=== PATIENT | male | born 1950 | race Caucasian/White ===

== ENCOUNTER 2019-09-08 11:35 | Observation (INO) | payer OTHER ==
[2019-09-08] MEDS ORDERED: NS 0.9% 1000 ML** 1,000 ML IV ONE (11:44)
--- NOTE | 2019-09-08 11:44 | ED ---
Neurological HPI - HPI Summary HPI Summary: This pt is a 69 y/o male, accompanied by , presenting to [facility] for confusion. reports the last time she saw the patient completely normal was last night. 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 Per , pt took a shower at around 1000, got dressed and came out to the living room asking repetitive questions. states pt was asking what day of the week it was and if he had to teach today. Pt denies any physical pain. Pt is unable to state his location, age, or current month. PMHx: DVT. Pt is anticoagulated on Xarelto. Pt follows up with Dr. Gaytan for blood clot. FHx: mother with stroke 3 years ago. - History of Current Complaint Stated Complaint: CONFUSION PER Hx Obtained From: Patient, Family/Comprehensive Ophthalmologist - Onset/Duration: Sudden Onset Timing: Sudden Onset Current Severity: Moderate Pain Intensity: 0 Pain Scale Used: 0-10 Numeric Character: Confusion Aggravating: Nothing Alleviating: Nothing Associated Signs and Symptoms: Positive: Confusion Related Hx: Anticoagulants - Allergy/Home Medications Allergies/Adverse Reactions: Allergies Allergy/AdvReac Type Severity Reaction Status Date / Time No Known Allergies Allergy Verified 09/08/19 12:19 Home Medications: Home Medications Cetirizine* [ZyrTEC 10 MG TAB*] 10 mg PO DAILY 09/08/19 [History Confirmed 09/08] Omeprazole CAP (NF) [Prilosec CAP* 20 MG] 20 mg PO QAM 09/08/19 [History Confirmed 09/08/19] Rivaroxaban TAB(*) [Xarelto 10 mg (*)] 10 mg PO DAILY 09/08/19 [History Confirmed 09/08/19] PMH/Surg Hx/FS Hx/Imm Hx Endocrine/Hematology History: Denies: Hx Diabetes Cardiovascular History: Reports: Hx Deep Vein Thrombosis Denies: Hx Coronary Artery Disease, Hx Hypercholesterolemia, Hx Hypertension - Surgical History Surgical History: Yes Surgery Procedure, Year, and Place: radical prostatectomy. hernia surgeries - Family History Family History: Mother with stroke 3 years ago - Social History Alcohol Use: Occasionally Substance Use Type: Reports: None Smoking Status (MU): Never Smoked Tobacco Review of Systems - ROS Summary Review of Systems Summary: ROS IS LIMITED DUE TO LEVEL 5 CAVEAT - pt with confusion Negative: Fever Neurological: Other - POSITIVE: confusion All Other Systems Reviewed And Are Negative: No Physical Exam - Summary Physical Exam Summary: VITAL SIGNS: Reviewed. GENERAL: Patient is a well-developed and nourished male who is lying comfortable in the stretcher. Patient is not in any acute respiratory distress. HEAD AND FACE: No signs of trauma. No ecchymosis, hematomas or skull depressions. No sinus tenderness. EYES: PERRLA, EOMI x 2, No injected conjunctiva, no nystagmus. No photophobia. EARS: Hearing grossly intact. Ear canals and tympanic membranes are within normal limits. MOUTH: Oropharynx within normal limits. NECK: Supple, trachea is midline, no adenopathy, no JVD, no carotid bruit, no c- spine tenderness, neck with full ROM. No meningeal signs, no Kernig's or brudzinskis signs. CHEST: Symmetric, no tenderness at palpation. LUNGS: Clear to auscultation bilaterally. No wheezing or crackles. CVS: Regular rate and rhythm, S1 and S2 present, no murmurs or gallops appreciated. ABDOMEN: Soft, non-tender. No signs of distention. No rebound, no guarding, and no masses palpated. Bowel sounds are normal. EXTREMITIES: FROM in all major joints, no edema, no cyanosis or clubbing. NEURO: Alert and oriented x1, patient does not know the month or his age. Patient is repeating the same questions. Speech is normal and follows commands. SKIN: Dry and warm. GCS: 15 Triage Information Reviewed: Yes Vital Signs Reviewed: Yes Procedures - Sedation Patient Received Moderate/Deep Sedation with Procedure: No Diagnostics - Laboratory Result Diagrams: 09/09/19 09:16 09/09/19 09:16 Lab Statement: Any lab studies that have been ordered have been reviewed, and results considered in the medical decision making process. - Radiology Chest XR Radiology Interpretation Completed By: Radiologist Summary of Radiographic Findings: IMPRESSION: 1. No evidence for acute finding. 2. Mass at the thoracic inlet causing tracheal deviation and narrowing. Recommend a follow-up thyroid ultrasound for further evaluation. Dr. Rhodes has reviewed this report. - CT Brain CT CT Interpretation Completed By: Radiologist Summary of CT Findings: IMPRESSION: Hypoattenuation in the left hemipons does not cross midline. Although this could be artifact, this could BE further evaluated by brain MRI. These findings were discussed with Dr. Alexis Rhodes at 11:57 on September 08, 2019. - EKG 11:53 Cardiac Rate: NL - at 77 bpm EKG Rhythm: Sinus Rhythm Summary of EKG Findings: EKG at 1153 shows normal sinus rhythm at [address] elevations. NIH Scale - NIH Scale Level of Consciousness: Alert/Keenly Responsive Ask Patient the Month and His/Her Age: Neither Correct/Aphasic Ask Pt to Open/Close Eyes and It Integration Architect/Release Non-Paretic Hand: Both Correctly Best Gaze (Only Horizontal Eye Movement): Normal Visual Field Testing: No Visual Loss Facial Paresis-Pt to Smile & Close Eyes or Grimace Symmetry: Normal/Symmetrical Motor Function - Right Arm: No Drift-Holds 10 Seconds Motor Function - Left Arm: No Drift-Holds 10 Seconds Motor Function - Right Leg: No Drift-Holds 10 Seconds Motor Function - Left Leg: No Drift-Holds 10 Seconds Limb Ataxia-Must be out of Proportion to Weakness Present: Absent Sensory (Use Pinprick to Test Arms/Legs/Trunk/Face): Normal Best Language (Describe Picture, Name Items): No Aphasia Dysarthria (Read Several Words): Normal Extinction and Inattention: No Abnormality Total Score: 2 Course/Dx - Course Course Of Treatment: Code Mcclelland at 1140. CT ordered at 1144. Pt to CT at 1144. Pt returned from CT at 1150. Dr. Gtz, radiologist, reports CT brain results at 1157. At 1220 Dr. Samuel, neurologist, reports pt is not a candidate for tpa, he believes pt may have transient global amnesia vs CVA. Dr. Samuel will order a full work up on the patient and recommends admission to the hospitalist. Assessment/Plan: This pt is a 69 y/o male, accompanied by , presenting to [facility] for confusion. reports the last time she saw the patient completely normal was last night. 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 Per , pt took a shower at around 1000, got dressed and came out to the living room asking repetitive questions. states pt was asking what day of the week it was and if he had to teach today. Pt denies any physical pain. Pt is unable to state his location, age, or current month. PMHx: DVT. Pt is anticoagulated on Xarelto. Pt follows up with Dr. Gaytan for blood clot. Srinath maria e was called at triage. Head CT IMPRESSION: 1. Hypoattenuation in the left hemipons does not cross the midline. Although this could be an artifact, this should BE further evaluated by brain MRI. CXR impression: NO EVIDENCE FOR ACUTE FINDING. 2. MASS AT THE THORACIC INLET INLET CAUSING TRACHEAL DEVIATION AND NARROWING. RECOMMEND A. FOLLOW-UP THYROID ULTRASOUND FOR FURTHER EVALUATION. CTA head and neck IMPRESSION: 1. THERE IS AN 8.1 CM LEFT THYROID MASS WITH MASS EFFECT UPON THE TRACHEA AND NARROWING OF THE LUMEN OF THE AIRWAY. 2. NO INTERNAL CAROTID ARTERY STENOSIS BY NASCET CRITERIA. 3. NO ANEURYSM, VASCULAR MALFORMATION, OCCLUSION, OR STENOSIS OF THE VISUALIZED INTRACRANIAL CIRCULATION. Dr. Samuel from neurology came and assessed the patient. He recommends no TPA since the patient is taking Xarelto. He recommends admission to the hospitalist for further workup and management. I discussed the case with Dr. Savage from the hospitalist services and he accepted the patient for admission. At this time we are waiting to rule out CVA versus transient global ablation. - Diagnoses Provider Diagnoses: Transient global amnesia During the Visit The Following Alert/Code Occurred: Code Mcclelland - at 11:40 - Physician Notifications Discussed Care Of Patient With: Bob Samuel Time Discussed With Above Provider: 12:20 Instructed by Provider To: Other - Dr. Samuel, neurologist, reports pt is not a candidate for tpa, he believes pt may have transient global amnesia vs CVA. Dr. Samuel will order a full work up on the patient and recommends admission. [12:35] Discussed with Dr. Savage, hospitalist, who accepted the pt for admission. Discharge ED - Sign-Out/Discharge Documenting (check all that apply): Patient Departure - Admit to [facility] [place] [facility] [place] Discharge Plan Condition: Stable Disposition: ADMITTED TO [facility] - Billing Disposition and Condition Condition: STABLE Disposition: Admitted to [facility] - Attestation Statements Document Initiated by Scribe: Yes Documenting Scribe: Sandhya Rand Provider For Whom Scribe is Documenting (Include Credential): Alexis Rhodes MD Scribe Attestation: Sandhya Blake, scribed for Alexis Rhodes MD on 09/09/19 at 1843. Scribe Documentation Reviewed: Yes Provider Attestation: The documentation as recorded by the scribe, Sandhya Rand accurately reflects the service I personally performed and the decisions made by me, Alexis Rhodes MD Status of Scribe Document: Viewed
[2019-09-08 12:07] LABS: ABS Eosinophils 0.1 10^3/ul (0-0.6); ABS Lymphocytes 1.4 10^3/ul (1.0-4.8); ABS Monocytes 0.7 10^3/ul (0-0.8); ABS Neutrophils 2.4 10^3/ul (1.5-7.7); Eosinophil % 3.2 %; Hematocrit 45 % (42-52); Hemoglobin 15.3 g/dL (14.0-18.0); Lymphocyte % 29.3 %; Mean Corpuscular HGB Conc 34 g/dL (31-36); Mean Corpuscular Hemoglobin 30 pg (27-31); Mean Corpuscular Volume 87 fL (80-94); Mean Platelet Volume 8.1 fL (7.4-10.4); Nucleated Red Blood Cells % 0.1; Platelet Count 188 10^3/uL (150-450); Red Blood Count 5.19 10^6 /uL (4.18-5.48); Red Cell Distribution Width 14 % (10-15); White Blood Count 4.7 10^3/uL (3.5-10.8)
[2019-09-08 12:14] LABS: INR 1.12 (0.82-1.09)
[2019-09-08 12:23] LABS: Albumin 4.1 g/dL (3.2-5.2); Albumin/Globulin Ratio 1.2 (1-3); BUN/Creatinine Ratio 22.4 (8-20); Calcium 9.4 mg/dL (8.6-10.3); EGFR Non-African American 76.1 (>60); Globulin 3.3 g/dL (2-4); HDL Cholesterol 36.3 mg/dL; Potassium 3.5 mmol/L (3.5-5.0); Total Bilirubin 0.6 mg/dL (0.2-1.0); Total Protein 7.4 g/dL (6.4-8.9)
[2019-09-08] MEDS ORDERED: Iohexol 350* (CONTRAST) 500 ML MDV IV ONE (12:27)
[2019-09-08] MEDS ORDERED: Thiamine INJ* 100 MG/ML 2 ML VIAL IV ONE (12:57)
[2019-09-08 13:03] LABS: Free T4 1.1 ng/dL (0.61-1.12)
[2019-09-08 13:05] LABS: TSH (Thyroid Stimulating Horm) 0.02 mcIU/mL (0.34-5.60)
[2019-09-08 13:12] LABS: Folate 15.51 ng/mL (>3.99)
[2019-09-08] MEDS ORDERED: Thiamine IV 100 MG in NS 0.9% 50 ML Q24H IV ONE (13:30)
[2019-09-08 13:43] LABS: Urine Appearance Clear; Urine Bilirubin Negative (Negative); Urine Blood Negative (Negative); Urine Color Yellow; Urine Glucose Negative (Negative); Urine Ketones Negative (Negative); Urine Nitrite Negative (Negative); Urine Protein Negative (Negative); Urine Urobilinogen Negative (Negative)
--- NOTE | 2019-09-08 14:19 | CONS ---
CC: Usha Saavge MD; Malik Gaytan MD * CONSULTATION REPORT: DATE OF CONSULT: 09/08/19 LOCATION: He is currently in the ER room 17. PRIMARY CARE PROVIDER: Usha Savage MD. REASON FOR CONSULTATION: Acute confusion. HISTORY OF PRESENT ILLNESS: Mr. Moon is a 69-year-old gentleman who has a known history of a DVT in the lower extremity several years ago, has been on half dose of Xarelto for that. I did speak with Dr. Malik Gaytan, who takes care of him, who notes a history of idiopathic DVT for which the treatment is generally anticoagulant; in this case, a half dose of Xarelto. He notes the 1- year risk of recurrent DVT in these patients off anticoagulation is about 8% and the 4-year risk is about 25%, which is why he remains on the Xarelto. He has had no problems from his DVT in the recent past. 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 He has been in his usual state of health and was last seen normal at midnight last night when his talked to him. This morning at around 9:30 or 10, she noticed that he kept repeating himself. She noted no focal weakness. He notes no numbness or tingling. He has not had any falls or head trauma. There have been no headaches reported, no vision loss, no hearing loss, no facial droop, no problems swallowing. She notes that he continues to ask the same question over and over. He continued to ask what date it was, what year it was, and where he was. In the ER, he was completely confused about how he had gotten to the ER. He does not remember any preceding events. In fact, he does not remember Thanksgiving several days ago. Again, he denies any other problems at this time and states, "I feel fine." He does recognize the fact that he is confused and during my examination, he asked me about 7 times what the date was, each followed by about a minute or two. This has never happened before. He has no history of seizures, no family history of seizures, and no febrile seizures. He has no history of significant head trauma, meningitis, or issues. There has been no seizure activity reported, although his states that he does jerk at night occasionally. He has been compliant with his medication. He denies any other symptoms including chest pain, nausea, vomiting, neck pain, headache, light or sound sensitivity, recent fevers, chills, or night sweats. No dysuria, frequency, or urgency. No shortness of breath. He has otherwise been in his usual state of health. He did have a CT scan done in the ER; I did review the results and there is what appears to be a hypoattenuation in the left azalia zakia, which does not cross midline, agree with the finding. This could be artifactual in nature. In addition, he had an EKG which showed normal sinus rhythm. His blood pressure was elevated in the ER to 150s/90s. He has no prior history of hypertension. His last known normal was about 12 hours ago. PAST MEDICAL HISTORY: As noted above. PAST SURGICAL HISTORY: Includes hernia repair. MEDICATIONS AT HOME: 1. Diphenhydramine 50 mg p.o. b.i.d. 2. Xarelto 10 mg daily. 3. Omeprazole 20 mg daily. 4. Zyrtec 10 mg daily. ALLERGIES: No known drug allergies. FAMILY HISTORY: His mother with a stroke at a late age. No family history of bleeding disorders that his is aware of. No other significant family history that she is aware of. 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 No tobacco use. Rare alcohol use at holidays. No drug use. He rides his bike to work every day and remains active. REVIEW OF SYSTEMS: His review of systems in 14-organ systems is as noted above ; otherwise, negative. PHYSICAL EXAM: Vital Signs: Blood pressure 154/96 to 150/94, his temperature is 97.9, heart rate is 77 to 90, respiratory rate in the 20s, O2 sats 93% to 96 % on room air. In general, he is a well-nourished, well-developed gentleman, in no acute distress. He is pleasant, well dressed, well groomed. HEENT: He is normocephalic, atraumatic. Sclerae are anicteric. Mucous membranes are moist. Oropharynx is clear. Nares are patent. Neck is supple. No thyromegaly. No carotid bruits. No meningismus. Chest: Clear to auscultation bilaterally. Cardiovascular: Regular rate and rhythm currently. Abdomen is nontender, nondistended. Extremities: No clubbing, cyanosis, or edema is appreciated. His skin is warm and dry without lesions. On neurologic exam, he is awake, alert. He is oriented to person, although he is confused about place and time and repetitively asks to know where he is and what the date and year is. His speech is fluent. There is no dysarthria. His repetition is intact. His ability to repeat is intact. His ability to retain information is impaired, although he can immediately repeat. Recall after about a minute is affected. His mood is concerned. Affect and mood congruent. Cranial Nerves: Pupils are equal, round, and reactive to light and accommodation. Extraocular muscles are intact. Visual wong are full. There is no nystagmus, no diplopia, no ptosis. His face is symmetric. There is no droop. Facial sensation intact to light touch. His hearing is intact bilaterally. His palate rises symmetrically. Tongue is midline. Motor Exam: 5 /5 throughout. There is no drift in the upper or lower extremities. Tone and bulk are both normal. Sensation is intact to light touch and pinprick throughout. There is no neglect or extinguishing with double simultaneous stimulation. DTRs are 2+ and symmetric in the upper and lower extremities - biceps, brachioradialis, and patella. Ankles are 1+ and Babinski's are upgoing bilaterally. Khnrjr-es-eovp and rapid alternating movements are intact without ataxia. There is no intention tremor. There is no resting tremor noted. There is no postural tremor. Uncj-[id number]-pkhc is normal. Gait: He was able to stand without difficulty. Romberg with minimal sway with eyes open and closed. NIH was calculated at 0. DIAGNOSTIC STUDIES/LAB DATA: Lab work includes a CBC with differential which is completely normal. INR of 1.12, PTT of 34. Complete metabolic profile with a BUN of 22.4, glucose of 121; otherwise, normal. Troponin I of 0.00. Triglycerides 82, cholesterol 164, LDL 111, HDL 36.3. Imaging: As noted above. ASSESSMENT AND PLAN: Mr. 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 He follows with Dr. Malik Gaytan. I did speak with Dr. Gaytan, who reports that the patient is on Xarelto to prevent recurrent DVT. The risk with an idiopathic DVT for 1-year recurrence is about 8%, 4-year recurrence of about 25% which is why he remains on the medication. He has apparently had no problems with the medication or with deep venous thromboses since treatment. Dr. 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 There do not appear to be any abnormalities. His states that his last known well was this morning at about midnight and that she talked to him at around 9:30 or 10 and noticed that he was repeating things. His NIH Stroke Scale today is 0 and his examination is significantly only for what appears to be an anterograde amnesia with some retrograde component as well. The amnesia is significant, having to ask the same question every minute or so to reorient. There are no risk factors or history of seizures. No history of prior stroke, but CT scan did show hypoattenuation in the left azalia zakia. At this point, my differential includes: 1. Transient global amnesia. Given his presentation, this seems to be most consistent with his findings. He has an element of retrograde, but profound anterograde amnesia. There is no focality to his examination and he does not appear to be overtly confused or delirious and I see no evidence for delirium. He is able to follow all commands. He is able to have a normal conversation. He just cannot encode new memories. He has never had an episode like this before. We have to rule out transient ischemic attack and stroke. The plan is to proceed with stroke workup including an MRI of the brain, CT angiogram of the head and neck to make sure he is not a candidate for large-vessel thrombectomy, although his examination and history is not consistent with a large-vessel occlusion, an echocardiogram, lab work, and telemetry. He will be admitted for overnight observation and I expect if this is transient global amnesia for resolution of his symptoms within 24 hours. 2. Seizure. With no prior history and no risk factors, my suspicion is low, but this could be a postictal state. My plan is to get an EEG and we will monitor him closely for any seizure activity. 3. He does not have any metabolic or infectious signs or symptoms that would make me think of an inflammatory process or metabolic process. He denies any history of significant alcohol, but Wernicke encephalopathy is always a consideration. I will give him a onetime dose of thiamine now, but my suspicion for Wernicke's is extremely low. 4. Hypertensive urgency. His blood pressure is elevated today. Although does not appear to be malignant, certainly hypertensive urgency is within the differential and we will continue to monitor his blood pressure and treat accordingly. 5. Complicated migraine. With no history of migraines, this is unlikely. I will continue to follow him closely and make further recommendations. He will be admitted to the hospital. Thank you for the opportunity to participate in his care. [id number]/[facility] #: [id number] JOSE DAVID
[2019-09-08] MEDS ORDERED: Senna TAB 8.6 mg* TAB PO PRN (15:59)
[2019-09-08] MEDS ORDERED: Acetaminophen TAB* 325 MG PO PRN (15:59)
[2019-09-08] MEDS ORDERED: Al Hydrox/Mg Hydrox/Simet LIQ* 30 ML UDC PO PRN (15:59)
--- NOTE | 2019-09-08 18:45 | HP ---
HISTORY AND PHYSICAL: ADDENDUM: Of note, the patient had a thyroid nodule FNA in 2011, which demonstrated benign thyroid nodule colloid/hyperplastic type. At that time, the left lobe was markedly enlarged and diffusely heterogeneous with involvement of the entire lobe in the left lobe of the thyroid measured 8.3 x 4.8 x 6.0 cm and the right lobe measured 5.1 x 1.5 x 0.9 cm. LORIN MERCADO [id number]/[facility] #: [id number] [facility]
--- NOTE | 2019-09-08 20:24 | HP ---
ADDENDUM INCLUDED ON THIS REPORT CC: Dr. Usha Savage * ADMISSION HISTORY AND PHYSICAL: DATE OF ADMISSION: 09/08/19 ATTENDING PHYSICIAN: Darshan Savage MD * (dictated by LORIN Quezada) PRIMARY CARE PROVIDER: Usha Savage MD CHIEF COMPLAINT: Confusion per the patient's . HISTORY OF PRESENT ILLNESS: Axel Moon is a 69-year-old white male with past medical history significant for left lower extremity DVT, on Xarelto; gastritis; and history of prostate cancer, status post prostatectomy, who presented to emergency department today via private vehicle for confusion. The patient woke up on his own and showered and clothed himself on his own. He then began talking to his around 9 to 10 a.m. this morning. Upon having discussion with his , he was immediately confused per his . He was very frequently, almost every 30 seconds, asking what day it was, what year it was, and where he was. 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 He was walking normally. The did not notice speech changes, facial drooping, or obvious weakness. When he arrived to emergency department, [facility] was called and Dr. Samuel has seen the patient in consultation and urgent CT was performed. He has no complaints at the time of my evaluation, but does frequently, every several minutes ask why he is at the hospital and how he got there. At the time of my evaluation, he does remember that it is Saturday, which is reportedly improvement over the past several hours. He has no complaints. He denies chest pain, difficulty breathing, visual changes, racing heart rate, numbness, or tingling in his extremities or weakness. The patient's provides most of the history. ED COURSE: When the patient arrived to the emergency department as previously mentioned, [facility] was called, urgent CT was performed and Dr. Samuel saw the patient in consultation. Vital signs when he arrived to the emergency department: Temperature 97.9 degrees Fahrenheit, heart rate 79, respiratory rate 25, oxygen saturation 96% on room air, blood pressure 154/96. The patient was given 1 L normal saline and 100 mg of thiamine. The hospitalists were asked to evaluate the patient for admission. PAST MEDICAL HISTORY: 1. Left lower extremity DVT, on Xarelto. 2. Gastritis. 3. Prostate cancer, status post prostatectomy. PAST SURGICAL HISTORY: 1. Prostatectomy. 2. Hernia repair x3. 3. Tonsillectomy. HOME MEDICATIONS: 1. Benadryl 50 mg p.o. b.i.d. 2. Xarelto 10 mg p.o. daily. 3. Omeprazole 20 mg p.o. daily. 4. Cetirizine 10 mg p.o. daily. ALLERGIES: No known drug allergies. FAMILY HISTORY: Father at age 79 due to colon cancer. Mother at age 94 who was otherwise healthy but did have a stroke at age 93 and history of dementia. SOCIAL HISTORY: The patient lives with his . They have 2 children together. 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 He rides his bike to work every day. He denies previous tobacco use and current tobacco use. He denies illicit drug use and drinks less than 1 alcoholic beverage per week. The patient's , Geoffrey Moon, is his healthcare proxy, her phone number is [phone]. REVIEW OF SYSTEMS: An 11-point review of systems was completed and all pertinent positives and negatives are above in the HPI, other systems are negative. PHYSICAL EXAMINATION GENERAL: A well-developed, well-nourished white male who appears younger than stated age, lying upright in hospital bed, appearing comfortable, in no acute distress, at bedside. HEENT: Head: Normocephalic/atraumatic. Eyes: PERRLA. Sclerae anicteric. No nystagmus. No exophthalmos. ENT: Mucous membranes moist. Tongue midline. NECK: Supple. There is a palpable left thyroid mass. LUNGS: Clear to auscultation bilaterally. CARDIO: Regular rate and rhythm without murmurs, rubs, or gallops. ABDOMEN: Soft, nontender, nondistended. EXTREMITIES: No clubbing, cyanosis, or edema. NEURO: The patient is alert. The patient is oriented to self and location but not to situation or the time. His strength is 5/5 in all extremities. His sensation is grossly intact throughout. No pronator drift. Speech is clear. Face is symmetrical. Answers questions appropriately and overall accurately per . DIAGNOSTIC STUDIES/LAB DATA: White blood cell count 4.7, hemoglobin 15.3, hematocrit 45, platelet count 188. Sodium 140, potassium 3.5, chloride 106, carbon dioxide 27, anion gap 7, BUN 22, creatinine 0.98, glucose 121. Lactic acid 1.8. Calcium 9.4. LFTs unremarkable. LDL 111, HDL 36.3, B12 of 673, folate 15.51. TSH 0.02, free T4 of 1.10. Urinalysis unremarkable. Brain CT, impression: Hypoattenuation in the left azalia-zakia, does not cross midline, although this could be artifact, this should be further evaluated by brain MRI. Chest x-ray, impression: No evidence for acute finding. Mass at the thoracic inlet causing tracheal deviation and narrowing. Recommend followup thyroid ultrasound for further evaluation. Brain MRI: Left eccentric T2/FLAIR hyperintensity in the zakia, favor to be branch sales and service representative of chronic small vessel ischemic disease. However, given the disproportion and lack of signal alteration in the supratentorial white matter, brain MRI with contrast in 1 month is recommended. No acute intracranial abnormalities identified. Head CTA: There is an 8.1 cm left thyroid mass effect on the trachea and narrowing of the lumen of the airway. No external carotid artery stenosis by NASCET criteria. No aneurysm, vascular malformation, occlusion, or stenosis of the visualized intracranial circulation. EKG: Rate 77 beats per minute, normal sinus rhythm, no ST elevations or depressions, isolated T-wave inversion in V1. No EKG for prior comparison. Normal axis. ASSESSMENT AND PLAN: Axel Moon is a 69-year-old white male with past medical history significant for gastritis; prostate cancer, status post prostatectomy; and history of DVT, on Xarelto, who presents to the emergency department due to confusion. The patient will be admitted OBV for: 1. Confusion. The patient effectively has had stroke ruled out as etiology of his confusion given his MRI. Dr. aSmuel reviewed his MRI and does believe this finding that was described above is due to chronic vessel disease and does not believe this is acute CVA. However, he will be admitted overnight for evaluation, monitoring on telemetry. An echo with bubble study has been ordered given his history of DVT. He will be continued on his Xarelto. An EEG has been ordered and results are pending. It is quite possible that this is a transient global amnesia episode; however, other etiologies must still to be ruled out. The patient does have a thyroid nodule and low TSH at 0.02. Pending T3, I cannot yet rule out thyrotoxicosis as the cause of his confusion at this point. At this point, I does feel that his confusion is minimally improving. He is otherwise without focal deficits and Dr. Samuel ordered thiamine in the emergency department and this has been given. I do not believe this is related to drugs as the patient does not take any illicit drugs. 2. Thyroid nodule. The patient has an 8.1 incidental finding of thyroid nodule on imaging today. His TSH was later found to be 0.02; however, his free T4 is normal. Free and total T3 is pending as well as thyrotropin antibody. If these are abnormal, methimazole will be started. At this point, he does not show any other evidence, besides the confusion, for possible thyrotoxicosis. This potentially could represent subclinical hyperthyroidism with a thyroid nodule. I have ordered a thyroid ultrasound and he should follow up with Dr. Booth in a month regardless. Of note, the patient had a thyroid nodule FNA in 2011, which demonstrated benign thyroid nodule colloid/hyperplastic type. At that time, the left lobe was markedly enlarged and diffusely heterogeneous with involvement of the entire lobe in the left lobe of the thyroid measured 8.3 x 4.8 x 6.0 cm and the right lobe measured 5.1 x 1.5 x 0.9 cm. 3. Gastritis. I will continue the patient's home omeprazole. 4. History of deep vein thrombosis. I will continue the patient's home Xarelto. 5. FEN. The patient may have regular, unrestricted diet. Electrolytes within normal limits. No further fluids are indicated. 6. Code status. The patient is full code. 7. DVT prophylaxis. The patient is on Xarelto. He does have a very risk for DVT. TIME SPENT: Approximately 45 minutes was spent on this admission, approximately half of this time was at bedside evaluating the patient and discussing plan of care. This case has been reviewed with my attending, Dr. Darshan Savage, he agrees with this plan of care. JESUS HERNANDEZ, LORIN [id number]/CPS #: [id number] [id number]/CPS #: [id number] JOSE DAVID
[2019-09-08 20:54] LABS: Free T3 3.9 pg/mL (2.5-3.9)
[2019-09-08] MEDS ORDERED: Rivaroxaban TAB(*) 10 MG PO SCH (21:00)
[2019-09-08] MEDS ORDERED: Pantoprazole TAB * 40 MG TAB PO SCH (21:00)
--- NOTE | 2019-09-08 21:48 | EEG ---
ELECTROENCEPHALOGRAPHY: DATE OF STUDY: 09/08/19 - ROOM #434 DATE OF DICTATION: 09/08/19 PATIENT OF: Dr. Samuel. CLINICAL PROBLEM: This is a 69-year-old man being evaluated for confusional aphasic episode. This study was done to evaluate for possible seizures. REPORT: With the patient awake, background cerebral activity consists of moderate amplitude posterior dominant 8 to 9 Hz rhythm. With the patient somewhat drowsy, there was some slowing in the theta range. The patient never falls asleep. No epileptiform potentials, focal abnormalities, or major asymmetries of background are noted. CLINICAL IMPRESSION: This awake and drowsy EEG is within normal limits. [id number]/[facility] #: [id number] [facility]
--- NOTE | 2019-09-09 08:07 | PN ---
Subjective Date of Service: 09/09/19 Length of Stay: 1 Days Interval History: Pt examined today at the bedside. He is remembering some parts of yesterday. He remembers getting up in the morning and showering and talking to his . He does not remember the events in the ER. He remembers being in the hospital overnight. He knows the month and date today. He states he is feeling well. He denies chest pain. Denies shortness of breathe. He denies abdominal pain. He denies weakness and denies changes in his speech. He states he is feeling better. ROS-denies fever, denies chills, deines chest paina, denies shortness of breathe , denies abdominal pain, denies nausea, denies vomiting, denies lightheaddness, denies loc, review of 14 systems completed all others negative, Review of Systems: Denied CP, SOB, or palpitations. Objective Active Medications: Acetaminophen (Tylenol Tab*) 650 mg PO Q4H PRN PRN Reason: PAIN - MILD Al Hydrox/Mg Hydrox/Simethicone (Maalox Plus*) 30 ml PO Q6H PRN PRN Reason: INDIGESTION Cetirizine HCl (Zyrtec*) 10 mg PO DAILY [facility] Pantoprazole Sodium (Protonix Tab*) 40 mg PO BEDTIME [facility] Last Admin: 09/08/19 20:39 Dose: 40 mg Rivaroxaban (Xarelto(*)) 10 mg PO BEDTIME [facility] Last Admin: 09/08/19 20:39 Dose: 10 mg Senna (Senokot 8.6 Mg Tab*) 1 tab PO BID PRN PRN Reason: CONSTIPATION Vital Signs 09/08/19 09/08/19 09/08/19 11:53 11:57 11:59 Temperature Pulse Rate 80 85 Respiratory 25 28 Rate Blood Pressure 154/96 (mmHg) O2 Sat by Pulse 94 96 94 Oximetry 09/08/19 09/08/19 09/08/19 12:00 12:12 12:17 Temperature 97.9 F Pulse Rate 86 76 Respiratory 21 25 19 Rate Blood Pressure 150/94 (mmHg) O2 Sat by Pulse 93 95 Oximetry 09/08/19 09/08/19 09/08/19 12:27 13:57 14:12 Temperature Pulse Rate 74 Respiratory 13 Rate Blood Pressure 148/98 141/88 151/101 (mmHg) O2 Sat by Pulse 96 Oximetry 09/08/19 09/08/19 09/08/19 14:27 14:42 14:57 Temperature Pulse Rate Respiratory Rate Blood Pressure 141/91 143/90 143/89 (mmHg) O2 Sat by Pulse Oximetry 09/08/19 09/08/19 09/08/19 15:12 15:34 15:42 Temperature Pulse Rate Respiratory 8 19 Rate Blood Pressure 145/96 142/104 (mmHg) O2 Sat by Pulse Oximetry 09/08/19 09/08/19 09/08/19 15:57 16:00 16:04 Temperature 97.8 F Pulse Rate Respiratory 19 25 Rate Blood Pressure 147/95 (mmHg) O2 Sat by Pulse Oximetry 09/08/19 09/08/19 09/08/19 16:32 17:29 19:15 Temperature 97.8 F 97.8 F 98.5 F Pulse Rate 78 80 90 Respiratory 16 20 16 Rate Blood Pressure 147/95 154/80 136/74 (mmHg) O2 Sat by Pulse 98 95 95 Oximetry 09/08/19 09/08/19 20:00 23:15 Temperature 97.4 F Pulse Rate 65 Respiratory 20 20 Rate Blood Pressure 110/50 (mmHg) O2 Sat by Pulse 95 95 Oximetry Intake and Output Last 24 Hours 09/07/19 09/08/19 09/09/19 09/10/19 06:59 06:59 06:59 06:59 Intake Total 1730 Output Total 0 Balance 1730 Weight 203 lb 14.4 oz Intake: IV Fluids 1000 Oral 730 Output: Urine 0 Other: # Bowel Movements 0 Oxygen Devices in Use Now: None Neurology Exam: General: Well nourished, well developed, and in no acute distress HEENT: Normocephelic/atraumatic, sclera anicteric, mucous membranes moist Neck: Supple Chest: Clear to auscultation bilaterally Cardiovascular: Regular rate and rhythm without murmurs, rubs, gallops Abdomen: Soft, non-tender/non-distended Extremities: No clubbing, cyanosis, or edema Neurological Findings: Awake, alert, and oriented to person, place, and time. Speech: fluent without dysarthria, repetition intact Cranial Nerve: PERRL, EOM intact, VFF, no nystagmus, face symmetric bilaterally , facial sensation intact, hearing intact to finger rub bilaterally, palate elevates symmetrically, tongue midline, SCM and Trapezius 5/5. Motor: 5/5 throughout, proximal and distal extremities x4 tone/bulk normal Sensation: intact to LT bilaterally upper and lower extremities Deep Tendon Reflex: 2+ symmetric in the upper/lower extremities, Babinski - down going Finger to nose, rapid alternating movements intact without tremor, no dysdiadochokinesia Gait: intact with good arm swing and stride. Romberg absent Result Diagrams: 09/08/19 11:47 09/08/19 11:47 Diagnostic Imaging: Diagnostics Summary of Radiographic IMPRESSION: 1. No evidence for acute finding. 2. Findings [Chest XR] Mass at the thoracic inlet causing tracheal deviation and narrowing. Recommend a follow-up thyroid ultrasound for further evaluation. Dr. Rhodes has reviewed this report. Summary of CT Findings [Brain IMPRESSION: Hypoattenuation in the left hemipons CT] does not cross midline. Although this could be artifact, this could BE further evaluated by brain MRI. These findings were discussed with Dr. Alexis Rhodes at 11:57 on September 08, 2019. Summary of EKG Findings [11:53 EKG at 1153 shows normal sinus rhythm at 77 bpm. ] No ST elevations. Assessment/Plan 69 y/o male patient presenting to [facility] – [place] with sudden onset of memory with a history of unprovoked DVT on xarelto. He presented to the ER after being advised to do so by his PCP. [facility] was called given the sudden changes in his mentation initial NIH stroke scale was 0. Since admission his memory has greatly improved. AMS: I suspect the patient has suffered from TGA. At this point EEG negative. CTA head and neck shows no LVO. However a 8.1 CM thyroid mass is noted. MRI brain shows a area of white matter change noted to the left Michelle. The plan will be to repeat an MRI in one months time with and without contrast. An echo is pending. At this point I would recommend supportive care. He should follow with his PCP for cholesterol, htn control. His is a non diabetic. He is a non smoker. He did explain to me that he generally gets 5-6 hrs of sleep a night and in addition to this drinks 1-3 5 hr energy drinks a day. I have advised his to strive for 8 hrs of sleep and to avoid drinking 5 hr energy drinks. I would not recommend ASA at this point. We will await echo, no evidence of afib on tele. At this point we will sign off. He will need follow up outpatient in 3-4 weeks for a repeat MRI. Thyroid mass: defer management to primary team Hx of DVT: continue xarelto At this point we will sign off. Please contact us with questions. He need follow up in 3-4 weeks in the neuro office for repeat MRI of the brain.
[2019-09-09] MEDS ORDERED: Cetirizine* 10 MG TAB PO SCH (09:00)
[2019-09-09 09:28] LABS: ABS Eosinophils 0.2 10^3/ul (0-0.6); ABS Lymphocytes 1.1 10^3/ul (1.0-4.8); ABS Monocytes 0.7 10^3/ul (0-0.8); ABS Neutrophils 2.4 10^3/ul (1.5-7.7); Eosinophil % 3.7 %; Hematocrit 42 % (42-52); Hemoglobin 13.9 g/dL (14.0-18.0); Lymphocyte % 24.5 %; Mean Corpuscular HGB Conc 34 g/dL (31-36); Mean Corpuscular Hemoglobin 29 pg (27-31); Mean Corpuscular Volume 86 fL (80-94); Mean Platelet Volume 8.4 fL (7.4-10.4); Nucleated Red Blood Cells % 0.1; Platelet Count 185 10^3/uL (150-450); Red Blood Count 4.83 10^6 /uL (4.18-5.48); Red Cell Distribution Width 14 % (10-15); White Blood Count 4.4 10^3/uL (3.5-10.8)
[2019-09-09 09:43] LABS: Calcium 8.8 mg/dL (8.6-10.3); Potassium 3.7 mmol/L (3.5-5.0)
[2019-09-09 09:48] LABS: BUN/Creatinine Ratio 18.5 (8-20); EGFR Non-African American 81.8 (>60)
[2019-09-09 13:34] VITALS: BP 116/75
--- NOTE | 2019-09-09 17:11 | ECHO ---
*[facility]* [place] [address] Fax #: [phone] Transthoracic Echocardiogram Patient: Axel Moon : 1950 Study Date: 09/09/2019 Age: 69 Gender: M HR: 64 bpm Height: 71 in /180.3 cm BSA: 2.18 m^2 Weight: 204.6 lb /93 kg BMI: 28.6 kg/m^2 *Stitch Separator: * Steffany Terry RDCS RN *Referring Physician: * Bob Samuel *Reading Physician: * Maddie Capellan MD Indications: CVA. History: DVT on Xarelto, thyroid nodule, gastritis. Conclusions Summary: - Left ventricle: The cavity size is normal. Septal thickness is mildly increased. There is a prominent septal knuckle measuring 1.5 cm. Systolic function is at the lower limits of normal. The estimated ejection fraction is 50-55%. Wall motion is normal; there are no regional wall motion abnormalities. There is no consistent Doppler evidence of clinically significant diastolic dysfunction. - Right ventricle: Systolic function is low normal. - Atrial septum: No defect or patent foramen ovale is identified. - Mitral valve: There is mild regurgitation. - Aortic valve: The valve is trileaflet. The leaflets are mildly thickened. There is trace regurgitation. - Tricuspid valve: There is trace to mild regurgitation. - Ascending aorta: The ascending aorta is mildly dilated at 3.5 cm. - Pulmonary arteries: Systolic pressure is within the normal range, estimated to be 26 mm Hg. - No prior echocardiogram to compare. Study data: Transthoracic echocardiogram. Procedure: Transthoracic echocardiography was performed. Image quality was fair. The study was technically limited due to body habitus. Intravenous agitated saline was administered. A bubble study was performed. Complete 2D, spectral Doppler, and color flow Doppler. Location: Bedside. Patient status: Observation. Patient room number: 434. Rhythm: Normal sinus rhythm. Findings Left ventricle: The cavity size is normal. Septal thickness is mildly increased. There is a prominent septal knuckle measuring 1.5 cm. Systolic function is at the lower limits of normal. The estimated ejection fraction is 50-55%. Wall motion is normal; there are no regional wall motion abnormalities. There is no consistent Doppler evidence of clinically significant diastolic dysfunction. Right ventricle: The cavity size is mildly dilated. Systolic function is low normal. Left atrium: The atrium is mildly dilated. Right atrium: The atrium is mildly dilated. Atrial septum: No defect or patent foramen ovale is identified. Bubble study was negative on Images 66-68. Mitral valve: The leaflets are mildly thickened. There is no evidence of stenosis. There is mild regurgitation. Aortic valve: The valve is trileaflet. The leaflets are mildly thickened. There is no evidence of stenosis. There is trace regurgitation. Tricuspid valve: The valve is structurally normal. There is no evidence of stenosis. There is trace to mild regurgitation. Pulmonic valve: The valve is structurally normal. There is no evidence of stenosis. There is trace regurgitation. Aorta: Aortic root: The aortic root is not dilated. Ascending aorta: The ascending aorta is mildly dilated at 3.5 cm. Aortic arch: The aortic arch is not visualized. Pericardium: There is no pericardial effusion. Pulmonary arteries: The main pulmonary artery is normal-sized. Systolic pressure is within the normal range, estimated to be 26 mm Hg. Systemic veins: Inferior vena cava: The vessel is normal in size. There is (>= 50%) respiratory change in the IVC dimension. Measurements Left ventricle Value Ref Aortic valve Value Ref ESTELLE, LAX 4.9 cm 4.2 - Peak v, S 1.65 m/sec ----- 5.8 VTI, S 35.1 cm ----- ESD, LAX 3.4 cm 2.5 - Mean grad, S 6.4 mm Hg ----- 4.0 Peak grad, S 11.0 mm Hg ----- FS, LAX 31 % 25 - 43 LVOT/AV, VTI ratio 0.49 ----- PW, ED 0.9 cm 0.6 - 1.0 Mitral valve Value Ref IVS/PW, ED 1.22 -------- Peak E 0.85 m/sec ----- E', lat harika, TDI 11.0 cm/sec >=10.0 Peak A 0.62 m/sec --- -- E/e', lat harika, TDI 8 -------- Decel time 216 ms ----- E', med harika, TDI (L) 6.0 cm/sec >=7.0 Peak grad, D 2.9 mm Hg --- -- E/e', med harika, TDI 14 -------- Peak E/A ratio 1.38 ----- E', avg, TDI 8.5 cm/sec -------- E/e', avg, TDI 10 <=14 Pulmonic valve Value Ref Peak v, S 0.77 m/sec ----- LVOT Value Ref Peak grad, S 2.4 mm Hg ----- Peak bhavik, S 0.81 m/sec -------- VTI, S 17.2 cm -------- Tricuspid valve Value Ref Peak grad, S 3 mm Hg -------- TR peak v 2.4 m/sec <=2.8 Mean grad, S 1 mm Hg -------- Peak RV-RA grad, S 23 mm Hg ----- Ventricular septum Value Ref Aortic root Value Ref IVS, ED (H) 1.1 cm 0.6 - Root diam 3.4 cm <4.3 1.0 Ascending aorta Value Ref Right ventricle Value Ref AAo AP diam, S 3.5 cm ----- ESTELLE, LAX 3.1 cm -------- ESTELLE minor ax, A4C (H) 4.0 cm 1.9 - Pulmonary artery Value Ref mid 3.5 Pressure, S 26.0 mm Hg ----- Pressure, S 26 mm Hg -------- Inferior vena cava Value Ref Left atrium Value Ref Diam 1.6 cm ----- LA ID 2.9 cm -------- ML dim, A4C 4.2 cm -------- SI dim, A4C 5.7 cm -------- Vol, ES, 2-p 80 ml -------- Vol/bsa, ES, 2-p (H) 37 ml/m^2 16 - 34 Right atrium Value Ref ML dim, ES, A4C 4.4 cm 2.6 - 4.4 SI dim, ES, A4C (H) 5.4 cm 3.4 - 5.3 Estimated RAP 3 mm Hg -------- Legend: (L) and (H) gerhard values outside specified reference range. Prepared and electronically signed by Maddie Capellan MD 09/09/2019 17:11
--- NOTE | 2019-09-10 23:13 | DS ---
DISCHARGE SUMMARY: DATE OF ADMISSION: 09/08/19 DATE OF DISCHARGE: 09/09/19 PROVIDER: Jovana Lazcano NP. PRIMARY CARE PROVIDER: [facility]. ATTENDING PHYSICIAN WHILE IN THE HOSPITAL: Dr. Grupo Garcia * (dictated by Jovana Lazcano NP). PRIMARY DIAGNOSES: 1. Transient global amnesia. 2. Thyroid mass 8 cm. 3. Hyperthyroidism. SECONDARY DIAGNOSES: 1. History of deep venous thrombosis, on Xarelto. 2. History of prostate cancer, status post prostatectomy. STUDIES COMPLETED WHILE IN THE HOSPITAL: The patient had a CT of the brain, radiologist's impression: Hypoattenuation in the hemipons does not cross the midline, although this could be artifact. This could be further evaluated by an MRI of the brain. He had a chest x-ray, radiologist impression: No evidence of acute findings, mass at the thoracic inlet causing tracheal deviation and narrowing. Recommend a followup thyroid ultrasound for further evaluation. He had an MRI of the brain, left centered T2 FLAIR hyperintensity in the zakia is favored to be public health representative of chronic small vessel ischemic disease; however, given the disproportionate lack of similar signal alteration in his supra white matter, MRI of the brain with contrast in 1 month is recommended unless indicated sooner. No acute intracranial abnormality is identified. He had a CTA of the head and neck. There is an 8.1 cm left thyroid mass effect upon the trachea and narrowing in the lumen of the airway. No internal carotid artery stenosis by NASCET criteria. No aneurysm, vascular malformation, occlusion, stenosis of visualized intracranial circulation. He had a transthoracic echocardiogram, summary: Left ventricle cavity size is normal. Septal thickness is mildly increased. There is prominent septal knuckling measuring 1.5 cm. Systolic thyroid function is at low limits of normal. Estimated ejection fraction of 50% to 55%. Wall motion is normal. There is no regional wall motion abnormalities. There is no consistent Doppler, evidence of clinically significant diastolic dysfunction. Right ventricle systolic function is low normal. Atrial septum, no defect or patent foramen ovale was identified. Mitral valve, there is mild regurgitation. Aortic valve, the valve is trileaflet. The leaflets are mildly thickened. There is trace regurgitation. Tricuspid valve, there is trace-to- mild regurgitation. Ascending aorta is mildly dilated 3.5 cm. Pulmonary arteries, systolic pressure is within normal range. He had an encephalogram, the awake drowsy EEG was within normal limits. DISCHARGE MEDICATIONS: New home medications: None. Continued home medications: 1. Xarelto 10 mg p.o. daily. 2. Omeprazole 20 mg p.o. daily. 3. Sertraline 10 mg p.o. daily. HISTORY OF PRESENT ILLNESS AND HOSPITAL COURSE: Mr. Moon is a 69-year-old male with past medical history significant for left lower leg DVT, on Xarelto; gastritis; history of prostate cancer, status post prostatectomy, who presented to the emergency department via private vehicle for confusion. The patient woke up on his own and showered and cooled himself off. Began talking to his around 9 to 10 o'clock this morning. Upon having a discussion with his , he was immediately confused per description. He was very frequently, almost every 30 seconds, asking her what day it was, what year it was and where he was. 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 He was walking normally. The patient did not notice any speech changes, facial droop. Did not notice any weakness on one side. While in the emergency room, a jesi sanderson was called. Dr. Samuel saw the patient in consultation. A CT was performed, which was within normal limits. On evaluation at the time of admission, the patient had no complaints. He does repeatedly ask every several minutes why he is at the hospital and how he got here. Due to those findings, the patient was admitted to rule out TIA versus CVA versus transient global amnesia. The patient was seen by Neurology, Dr. Jabari Samuel, who thought that his episode was related to transient global amnesia. Next day, the day of discharge, the patient is back to his baseline. He is able to remember most of the events of yesterday. He does still have a block of time that he cannot remember the things that have occurred, but he is able to remember conversations and why he is in the hospital. He appears to be back at his baseline. During the studies completed during the hospital, did find that he had a large thyroid goiter that was compressing on his trachea. It was recommended that this be followed up. I did talk to Dr. Iniguez from ENT, who recommended that the patient follow up in his office in 1 to 2 weeks for further evaluation. The patient denies any difficulty swallowing, difficulty breathing. He denies any episodes of choking while eating. Due to being asymptomatic with this finding, Dr. Iniguez felt that the patient would be stable to be discharged without in-hospital evaluation. This should be followed up closely. The patient and were both advised of this. While in the hospital, the patient was monitored on telemetry. He was not found to have any arrhythmias. Today, on the day of discharge, the patient reports that he is feeling well. He feels back to his baseline. REVIEW OF SYSTEMS: The patient denies any fever, chills, or unintended weight loss. Denies any chest pain or edema. Denies any shortness of breath. Denies any cough or congestion. Denies any nausea, vomiting, or diarrhea. He denies any abdominal pain, hematuria, or dysuria. Denies any focal weakness or sensory loss. Denies any visual complaints. Denies any dysphagia, arthralgias, myalgias, rashes, lesions, or open sores. PHYSICAL EXAMINATION: General: At this time, Mr. Moon is alert and oriented, resting in his hospital bed. He is in no acute distress. Vital Signs : Blood pressure was 116/75, heart rate 76, respirations 18, O2 saturation 95% , temperature was 98.0. HEENT: Head is atraumatic, normocephalic. Eyes: EOMs are intact. Sclerae anicteric and not pale. Oral mucosa appeared to be moist. Neck is supple. Lungs are clear to auscultation bilaterally. No wheezes , rales, or rhonchi. Cardiac: S1, S2. Regular rate and rhythm. No murmurs, rubs, or gallops. Abdomen is soft and nontender. Bowel sounds are present x4. Extremities: He is able to move all 4 extremities. There is no clubbing or cyanosis. Neurologic: He is awake, alert, and oriented x3. Speech is clear. Thought process is intact. There is no gross focal deficits. Skin is intact. At this time, Mr. Moon is stable for discharge home. DISCHARGE PLAN: Mr. Moon will be discharged home. Activity as tolerated. 1. Transient global amnesia: The patient should follow up with Neurology in 4 to 6 weeks. He will need to have a repeat MRI of the brain with and without contrast. He will follow up with Dr. Samuel. Further recommendations will be based upon further imaging. He should continue his Xarelto as previously prescribed. 2. Thyroid nodule/mass: The patient was noted on the CTA of the neck to have a large left thyroid mass at 8.1 cm. The patient does have a history of a left thyroid goiter that was biopsied in 2011. During this finding in the CTA of the neck, I did show compression on his trachea and airway. The patient is asymptomatic. He has no difficulty breathing. He denies any choking with eating or difficulty with swallowing. I did speak to Dr. Iniguez from ENT, who recommended that the patient follow up with him as an outpatient due to being asymptomatic for further evaluation and recommendations. The patient should follow up with Dr. Iniguez as soon as possible as THE PATIENT DOES HAVE TRACHEAL COMPRESSION WITH A MASS, LEFT THYROID MASS. 3. Hyperthyroidism. The patient did have TSH of 0.02. I would recommend that he follow up with Dr. Booth from Endocrinology for further recommendations. Also he does have a large thyroid mass. He can follow with Endocrinology as well for his large thyroid mass. I suspect that this mass will need to be biopsied and ultimate recommendations will be made based on ENT's recommendations. 4. The patient and his were instructed to return to the emergency room for any difficulty swallowing, difficulty breathing, chest pain, weakness on one side, slurred speech, or any other concerning symptoms. The patient and his both verbalized understanding. 5. The patient should follow up with his primary care provider in 4 to 7 days. He should follow up with Dr. Jabari Samuel in 3 to 4 weeks for repeat MRI of the brain with and without contrast. The patient should follow up with Dr. Iniguez from ENT in regards to a large thyroid mass. 6. He should also follow up with Dr. Booth from Endocrinology due to his thyroid mass and TSH level of 0.02. TIME SPENT: Time spent on this discharge was 45 minutes, greater than half that time was spent at the bedside reviewing discharge plans and instructions. The patient and the family verbalized understanding. I have discussed this with my attending Dr. Grupo Garcia, he is in agreement with my plan. Condition on Discharge: Stable Disposition on Discharge: Stable JOVANA LAZCANO, CRACKING STILL OPERATOR [id number]/[facility] #: [id number] [facility]ITALWoody
[2019-09-11 19:44] LABS: Thyrotropin Receptor Antibody <1.00 IU/L
== END 2019-09-09 14:47 | disposition home or self-care (01) ==
LOC: ED 11:35 → MEDTELE 15:59
PROVIDERS: ADMIT Internal Medicine; ATTEND Internal Medicine
DX: G45.4 Transient global amnesia (principal); E04.1 Nontoxic single thyroid nodule; E05.90 Thyrotoxicosis, unspecified without thyrotoxic crisis or storm; Z86.718 Personal history of other venous thrombosis and embolism; Z79.899 Other long term (current) drug therapy; Z79.01 Long term (current) use of anticoagulants
CPT/HCPCS: 36415; 70450; 70496; 70498; 70551; 71045; 80048; 80053; 80061; 81003; 82607; 82746; 83090; 83520; 83605; 84439; 84443; 84479; 84481; 84484; 85025; 85610; 85730; 86038; 93005; 93306; 95816; 96361; 96365; 99285; A9270-GY; G0378; J3411; Q9967